=== PATIENT | female | born 1985 | race Hispanic/Latino ===

== ENCOUNTER 2017-03-23 18:35 | Emergency (ER) | payer SELFPAY | END 2017-03-23 19:53 | disposition home or self-care (01) | LOC: ERS 18:35 | DX: O99.512 Diseases of the respiratory system complicating pregnancy, second trimester (principal); J11.1 Influenza due to unidentified influenza virus with other respiratory manifestations; Z3A.22 22 weeks gestation of pregnancy | CPT/HCPCS: 99283 ==

== ENCOUNTER 2017-07-07 08:11 | Inpatient (IN) | payer MEDICAID, SELFPAY ==
[2017-07-07] MEDS: Lactated Ringer's 1,000 ML IV SCH ×3 (08:34→21:27)
[2017-07-07] MEDS ORDERED: NS / Oxytocin 40 units/1000ml 1,000 ML ONE (08:39)
[2017-07-07] MEDS ORDERED: Lidocaine 1% (PF) 30 ML VIAL ONE (08:46)
[2017-07-07] MEDS ORDERED: Ondansetron HCl/PF 4 MG/2 ML Vial IVP PRN (08:56)
[2017-07-07] MEDS ORDERED: Lidocaine 1% (PF) 30 ML VIAL SC PRN (08:56)
[2017-07-07] MEDS ORDERED: Promethazine HCl 25 MG/ML VIAL IM PRN (08:56)
[2017-07-07] MEDS ORDERED: Ibuprofen 800 MG TAB PO PRN (08:56)
[2017-07-07] MEDS ORDERED: NS / Oxytocin 40 units/1000ml 1,000 ML IV PRN (08:56)
--- NOTE | 2017-07-07 09:05 | PDOC.LDHP ---
Labor and Delivery H&P HPI: Patient of the Clinic. Admitted with imminent delivery pending (second stage admit) Dr Lori Acosta and I present at [facility] for admit and delivery HPI: 31 yo HF at term, denies any complications, admitted stat for delivery. Patient progressed to within 15 minutes. See HANDWRITTEN NOTES and Delivery record. Current gestational age (weeks): 39 (0 days) Dating criteria: last menstrual period Grav: 3 Para: 2 Current complications: none Abnormal US findings: No Current medications: pre-srinivas vitamins Previous surgical history: none Allergies/Adverse Reactions: Allergies Allergy/AdvReac Type Severity Reaction Status Date / Time No Known Allergies Allergy Verified 11/04/12 14:35 Social history: none - Physical Exam Vital signs reviewed and normal: yes General: NAD Heart: RRR Lungs: CTAB Abdomen: gravid - Vaginal Exam cm dilated: 10 (H&P done as patient was pushing) Effacement: 100% Station: 2+ - Assessment L&D Assessment: term patient in labor - Plan Plan: admit to L&D, observation in L&D, other (No time for GBS coverage4...GBS unknown. No Risk Factors for GBS identified. Delivery...see delivery record. Has handwritten notes in chart as well)
--- NOTE | 2017-07-07 09:09 | PDOC.OPDEL ---
OB Operative/Delivery Note Delivery Dr/Surgeon: Lori Acosta. Staff: Cardenas Assist: Cardenas (present and participated. Repair of first degree by Cardenas) Pre-Delivery Diagnosis: active labor Procedure/Post Delivery Dx: spontaneous vaginal delivery Weeks gestation: 39 Anesthesia: local - Findings A - 1 min: 9 - 5 min: 9 - Additional Findings/Plan Placenta delivered: spontaneous Repaired Obstetrical Laceration: 1st degree (Repaired with 5ml local without epi. Lac was midline, 2-0 vicryl used for repair.) Estimated blood loss: 200 Compilations/Other Findings: NC X 1 at delivery, baby easily delivered through. Delayed cord clamping for 30- 40 seconds allowed/ Skin to skin done. Delivery was at 0837, placenta at 0843. Intact placenta..pham mechanism, 3 VC Post delivery plan: routine recovery
[2017-07-07 09:10] VITALS: BMI 24.1
[2017-07-07 09:16] LABS: Hemoglobin 13.2 g/dL (12.0-16.0); Mean Corpuscular HGB CONC 34.5 g/dL (32.0-36.0); Mean Corpuscular Hemoglobin 32.2 pg (27.0-31.0); Mean Corpuscular Volume 93.3 fl (81.0-99.0); Mean Platelet Volume 7.8 fL (7.4-10.4); Platelet Count 252 thou/uL (130-400); RBC Distribution Width 13.2 % (11.5-14.5); Red Blood Cell (RBC) Count 4.12 mill/uL (4.20-5.40); White Blood Cell (WBC) Count 13.6 thou/uL (4.8-10.8)
[2017-07-07 09:46] LABS: HIV (1/2) Antibody/Antigen Non-Reactive (NonReactive); HIV 1/2 INDEX 0.09 S/CO (<1.00); Hep B Surf Ag Non-Reactive S/CO (NonReactive); Syphilis Antibody Nonreactive (Nonreactive); Syphilis Antibody Index 0.04 S/CO (<1.00 Non-Reactive)
[2017-07-07] MEDS ORDERED: NS / Oxytocin 40 units/1000ml 1,000 ML IV SCH (11:45)
[2017-07-07] MEDS ORDERED: Benzocaine/Menthol 20-0.5% 60 ML CAN TOP PRN (11:45)
[2017-07-07] MEDS ORDERED: Preparation H Ointment 28 GM TUBE PR PRN (11:45)
[2017-07-07] MEDS ORDERED: Adacel (T-DAP) 0.5 ML VIAL IM ONE (11:45)
[2017-07-07] MEDS ORDERED: Lanolin Ointment 7 GM TUBE TOP PRN (11:45)
[2017-07-07] MEDS ORDERED: Milk Of Magnesia 30 ML UDCUP PO PRN (11:45)
[2017-07-07] MEDS ORDERED: Bisacodyl 10 MG SUPP PR PRN (11:45)
[2017-07-07] MEDS: Ibuprofen 800 MG TAB PO SCH ×2 (14:57→21:28)
[2017-07-07] MEDS: Ferrous Sulfate 325 MG TAB PO SCH (18:14)
[2017-07-07] MEDS: Docusate Calcium (SURFAK) 240 MG CAP PO SCH (21:28)
[2017-07-08] MEDS: Ibuprofen 800 MG TAB PO SCH ×3 (05:46→21:35)
--- NOTE | 2017-07-08 05:50 | PDOC.PP ---
Post Progress Note Post Day #: 1 Subjective: Doing well PO intake tolerated: yes Flatus: yes Ambulation: yes Vital Signs (12 hours) Temp Pulse Resp BP Pulse Ox 07/08/17 04:37 98.2 F 66 18 07/08/17 04:07 98.2 F 66 18 121/77 98 07/08/17 00:26 97.9 F 55 L 16 114/68 97 07/07/17 19:43 97.9 F 62 18 07/07/17 19:17 97.9 F 62 18 110/63 98 07/07/17 18:16 98.2 F 64 16 112/70 98 Weight Weight 154 lb - Physical Examination General: NAD Cardiovascular: no m/r/g Respiratory: clear to auscultation bilaterally Abdominal: + bowel sounds, lochia, appropriately TTP Extremities: negative homans (B) Perineum: No active VB Neurological: no gross focal deficits Result Diagrams: 07/07/17 08:35 Additional Labs: Post Labs Blood Type O POSITIVE 07/07/17 08:35 Hep Bs Antigen Non-Reactive S/CO (NonReactive) 07/07/17 08:35 (1) Vaginal delivery Code(s): O80 - ENCOUNTER FOR FULL-TERM UNCOMPLICATED DELIVERY Status: Acute - Assessment/Plan Patient is doing well. She was GBS positive, untreated intrapartum due to rapid delivery after admission. D/W NBN, baby will stay for obs...so we will keep mother until tomorrow when baby ready for discharge as well. Check Hct in AM . EBL at delivery was <300ml.
--- NOTE | 2017-07-08 06:56 | PDOC.PP ---
Post Progress Note Post Day #: 1 Subjective: Patient is doing well. She is up walking around. She has been voiding normally. Reports lochia less than a period. Pain is well controlled. PO intake tolerated: yes Flatus: yes Ambulation: yes Vital Signs (12 hours) Temp Pulse Resp BP Pulse Ox 07/08/17 04:37 98.2 F 66 18 07/08/17 04:07 98.2 F 66 18 121/77 98 07/08/17 00:26 97.9 F 55 L 16 114/68 97 07/07/17 19:43 97.9 F 62 18 07/07/17 19:17 97.9 F 62 18 110/63 98 Weight Weight 69.853 kg - Physical Examination General: NAD Cardiovascular: no m/r/g, RRR Respiratory: clear to auscultation bilaterally, non-labored breathing Abdominal: + bowel sounds, lochia, no distention, appropriately TTP Fundus firm & at: umbilicus Extremities: negative homans (B) Psychiatric: A&Ox3, normal affect Result Diagrams: 07/07/17 08:35 Additional Labs: Post Labs Blood Type O POSITIVE 07/07/17 08:35 Hep Bs Antigen Non-Reactive S/CO (NonReactive) 07/07/17 08:35 (1) Vaginal delivery Code(s): O80 - ENCOUNTER FOR FULL-TERM UNCOMPLICATED DELIVERY Status: Acute - Assessment/Plan -->3 delivered via precipitous , post- day #1. She is doing well with ambulation and voiding. Lochia wnl. without difficulty. Was GBS+ with precipitous labor so did not receive Abx. Will monitor for 1 more night before discharge home.
[2017-07-08] MEDS: Prenatal Vitamin 1 TAB PO SCH (07:58)
[2017-07-08] MEDS: Docusate Calcium (SURFAK) 240 MG CAP PO SCH ×2 (07:58→21:35)
[2017-07-08] MEDS: Ferrous Sulfate 325 MG TAB PO SCH ×2 (07:59→16:10)
[2017-07-08] MEDS: Lactated Ringer's 1,000 ML IV SCH ×2 (09:21→16:10)
[2017-07-09] MEDS: Lactated Ringer's 1,000 ML IV SCH (00:33)
[2017-07-09] MEDS: Ibuprofen 800 MG TAB PO SCH (05:25)
[2017-07-09 05:33] LABS: Hemoglobin 10.3 g/dL (12.0-16.0)
--- NOTE | 2017-07-09 06:38 | PDOC.PP ---
Post Progress Note Post Day #: 2 Subjective: Patient is doing well this morning. No complaints. She is well, ambulating well, voiding normally, reports normal lochia, and pain is controlled with ibuprofen. No acute events overnight. PO intake tolerated: yes Flatus: yes Ambulation: yes Vital Signs (12 hours) Temp Pulse Resp BP Pulse Ox 07/08/17 19:44 97.9 F 63 16 124/70 97 Weight Weight 69.853 kg - Physical Examination General: NAD Cardiovascular: no m/r/g, RRR Respiratory: clear to auscultation bilaterally Abdominal: + bowel sounds, lochia, appropriately TTP Fundus firm & at: umbilicus Extremities: negative homans (B) Neurological: no gross focal deficits Psychiatric: A&Ox3, normal affect Result Diagrams: 07/09/17 05:10 Additional Labs: Post Labs Blood Type O POSITIVE 07/07/17 08:35 Hep Bs Antigen Non-Reactive S/CO (NonReactive) 07/07/17 08:35 (1) Vaginal delivery Code(s): O80 - ENCOUNTER FOR FULL-TERM UNCOMPLICATED DELIVERY Status: Acute - Assessment/Plan -->3 delivered via precipitous , post- day #2. She is doing well with ambulation and voiding. Lochia wnl. without difficulty. Was GBS+ with precipitous labor so did not receive Abx. Plan to d/c home today.
[2017-07-09 07:53] VITALS: BP 128/74; TEMP 98.7
[2017-07-09] MEDS: Docusate Calcium (SURFAK) 240 MG CAP PO SCH (09:42)
[2017-07-09] MEDS: Prenatal Vitamin 1 TAB PO SCH (09:42)
[2017-07-09] MEDS: Ferrous Sulfate 325 MG TAB PO SCH (09:43)
== END 2017-07-09 10:36 | disposition home or self-care (01) | DRG 775 ==
LOC: L&D/OP 08:11 → L&D 08:52 → 3SE 18:11
PROVIDERS: ADMIT Obstetrics & Gynecology; ATTEND Obstetrics & Gynecology
PROC: 10E0XZZ Delivery of Products of Conception, External Approach (ICD-10-PCS; principal; 2017-07-07)
PROC: 0HQ9XZZ Repair Perineum Skin, External Approach (ICD-10-PCS; 2017-07-07)
DX: O70.0 First degree perineal laceration during delivery (principal); O62.3 Precipitate labor; O99.824 Streptococcus B carrier state complicating childbirth; Z3A.39 39 weeks gestation of pregnancy; Z37.0 Single live birth
CPT/HCPCS: 36415; 85014; 85018; 85027; 86780; 86850; 86900; 86901; 87340; 87389; 99285; A4216; J2001

== ENCOUNTER 2020-06-06 12:05 | Inpatient (IN) | payer MEDICAID, SELFPAY ==
[2020-06-06 12:41] LABS: #Monocytes 0.3 thou/uL (0.11-0.59); #Neutrophils 11.3 thou/uL (1.40-6.50); %Basophils 0.3 % (0.0-1.0); %Eosinophils 0.2 % (0.0-10.0); %Lymphocytes 7.9 % (21.0-51.0); %Monocytes 2.2 % (0.0-10.0); %Neutrophils 89.4 % (42.0-75.0); Hemoglobin 14.5 g/dL (12.0-16.0); Mean Corpuscular HGB CONC 32.5 g/dL (32.0-36.0); Mean Corpuscular Hemoglobin 29.3 pg (27.0-31.0); Mean Corpuscular Volume 90.3 fL (78.0-98.0); Mean Platelet Volume 6.7 fL (7.4-10.4); Platelet Count 532 thou/uL (130-400); RBC Distribution Width 12.6 % (11.5-14.5); Red Blood Cell (RBC) Count 4.96 mill/uL (4.20-5.40); White Blood Cell (WBC) Count 12.6 thou/uL (4.8-10.8)
[2020-06-06] MEDS ORDERED: cefTRIAXone\\ROCEPHIN 1 GM VIAL ONE (12:41)
[2020-06-06 12:42] LABS: BHCG - Serum Negative (NEGATIVE); Pregs Control Background? CLEAR/WHITE (CLR/WHITE); Pregs Control Bar Appear? YES (CONTROL BAR)
[2020-06-06] MEDS ORDERED: Dexamethasone 4 mg/ml Vial ONE (12:42)
[2020-06-06] MEDS ORDERED: Aspirin Chewable 81 MG TAB ONE (12:42)
[2020-06-06] MEDS ORDERED: Enoxaparin Sodium 80 MG/0.8 ML SYRINGE ONE (12:44)
[2020-06-06] MEDS ORDERED: Azithromycin 500 MG VIAL ONE (12:44)
[2020-06-06 13:04] LABS: ALT (SGPT) 25 U/L (8-55); AST (SGOT) 17 U/L (5-34); Albumin 3.8 g/dL (3.5-5.0); Alkaline Phosphatase 126 U/L (40-110); Anion Gap 13 mmol/L (10-20); BUN (Urea Nitrogen) 16 mg/dL (7.0-18.7); Bilirubin, Total 0.5 mg/dL (0.2-1.2); CK (CPK) 26 U/L (29-168); Calc. Creatinine Clearance 0 mL/min (70-130); Calcium 9.2 mg/dL (7.8-10.44); Carbon Dioxide 21 mmol/L (22-29); Chloride 106 mmol/L (98-107); Globulin 4.3 g/dL (2.4-3.5); Glucose 141 mg/dL (70-105); Magnesium 2.3 mg/dL (1.6-2.6); Potassium 3.8 mmol/L (3.5-5.1); Protein, Total 8.1 g/dL (6.0-8.3); Sodium 136 mmol/L (136-145)
[2020-06-06] MEDS ORDERED: Iopamidol-370 76% 500 ML 1 ML ONE (13:04)
[2020-06-06] MEDS ORDERED: Acetaminophen 325 MG TAB PO PRN (14:38)
[2020-06-06] MEDS ORDERED: Acetaminophen 650 MG Suppository PR PRN (14:38)
[2020-06-06] MEDS ORDERED: Ondansetron PF 4 MG/2 ML Vial IVP PRN (14:38)
[2020-06-06] MEDS ORDERED: Ondansetron ODT 4 MG TAB PO PRN (14:38)
[2020-06-06 15:06] LABS: SARS-CoV-2 NAA Rapid Test DETECTED (NotDetected)
[2020-06-06 21:19] VITALS: BMI 24.1
[2020-06-06] MEDS: Enoxaparin Sodium 80 MG/0.8 ML SYRINGE SC SCH (21:36)
[2020-06-07 06:24] LABS: #Basophils 0.1 thou/uL (0.0-0.2); #Lymphocytes 1.8 thou/uL (1.20-3.40); #Monocytes 1.2 thou/uL (0.11-0.59); #Neutrophils 9.9 thou/uL (1.40-6.50); %Basophils 0.5 % (0.0-1.0); %Eosinophils 0.3 % (0.0-10.0); %Lymphocytes 14.1 % (21.0-51.0); %Neutrophils 76.2 % (42.0-75.0); Hemoglobin 13.2 g/dL (12.0-16.0); Mean Corpuscular Volume 90.6 fL (78.0-98.0); Mean Platelet Volume 6.9 fL (7.4-10.4); Platelet Count 556 thou/uL (130-400); RBC Distribution Width 12.6 % (11.5-14.5); Red Blood Cell (RBC) Count 4.56 mill/uL (4.20-5.40)
[2020-06-07 06:45] LABS: Anion Gap 16 mmol/L (10-20); BUN (Urea Nitrogen) 15 mg/dL (7.0-18.7); Calc. Creatinine Clearance 134 mL/min (70-130); Carbon Dioxide 17 mmol/L (22-29); Chloride 109 mmol/L (98-107); Glucose 103 mg/dL (70-105); Sodium 138 mmol/L (136-145)
[2020-06-07] MEDS: Dexamethasone 4 MG TAB PO SCH (08:04)
[2020-06-07] MEDS: Enoxaparin Sodium 80 MG/0.8 ML SYRINGE SC SCH ×2 (08:05→20:05)
[2020-06-07] MEDS: Ascorbic Acid 500 mg Chewable Tablet PO SCH (08:05)
[2020-06-07] MEDS: Zinc Sulfate 220 MG CAP PO SCH (08:05)
[2020-06-08 06:05] LABS: #Eosinphils 0.1 thou/uL (0.0-0.7); #Lymphocytes 2.8 thou/uL (1.20-3.40); #Monocytes 1.4 thou/uL (0.11-0.59); #Neutrophils 10.4 thou/uL (1.40-6.50); %Basophils 0.2 % (0.0-1.0); %Eosinophils 0.4 % (0.0-10.0); %Lymphocytes 18.9 % (21.0-51.0); %Monocytes 9.7 % (0.0-10.0); %Neutrophils 70.8 % (42.0-75.0); Hemoglobin 13.9 g/dL (12.0-16.0); Mean Corpuscular HGB CONC 32.4 g/dL (32.0-36.0); Mean Corpuscular Hemoglobin 29.8 pg (27.0-31.0); Mean Corpuscular Volume 91.9 fL (78.0-98.0); Mean Platelet Volume 6.9 fL (7.4-10.4); Platelet Count 541 thou/uL (130-400); RBC Distribution Width 12.8 % (11.5-14.5); Red Blood Cell (RBC) Count 4.67 mill/uL (4.20-5.40); White Blood Cell (WBC) Count 14.7 thou/uL (4.8-10.8)
[2020-06-08 06:23] LABS: Anion Gap 15 mmol/L (10-20); BUN (Urea Nitrogen) 14 mg/dL (7.0-18.7); Calc. Creatinine Clearance 128 mL/min (70-130); Calcium 9.1 mg/dL (7.8-10.44); Carbon Dioxide 18 mmol/L (22-29); Chloride 108 mmol/L (98-107); Glucose 83 mg/dL (70-105); Sodium 137 mmol/L (136-145)
[2020-06-08] MEDS: Dexamethasone 4 MG TAB PO SCH (08:11)
[2020-06-08] MEDS: Ascorbic Acid 500 mg Chewable Tablet PO SCH (08:11)
[2020-06-08] MEDS: Enoxaparin Sodium 80 MG/0.8 ML SYRINGE SC SCH ×2 (08:11→21:07)
[2020-06-08] MEDS: Zinc Sulfate 220 MG CAP PO SCH (08:11)
[2020-06-08] MEDS ORDERED: methylPREDNISolone Sod Succ/PF 125 MG/2 ML VIAL IVP SCH (12:45)
[2020-06-08] MEDS ORDERED: Ivermectin 3 MG TAB PO SCH (13:00)
[2020-06-08] MEDS: Thiamine 100 MG TAB PO SCH (13:23)
[2020-06-08] MEDS: SODIUM CHLORIDE 0.9% IVPB SCH (13:28)
[2020-06-08] MEDS: METHYLPREDNISOLONE SOD SUCC IVPB SCH (13:28)
[2020-06-08] MEDS: Piperacillin/Tazobactam 3.375 GM in Sodium Chloride 0.9% 100 ML IVPB SCH ×3 (13:28→23:43)
[2020-06-08] MEDS: Cholecalciferol 1,000 UNITS (25 MCG) TAB PO SCH (21:07)
[2020-06-08] MEDS: Melatonin 3 MG TAB PO SCH (21:07)
[2020-06-09] MEDS: Piperacillin/Tazobactam 3.375 GM in Sodium Chloride 0.9% 100 ML IVPB SCH ×4 (05:32→23:44)
[2020-06-09] MEDS: Enoxaparin Sodium 80 MG/0.8 ML SYRINGE SC SCH ×2 (07:25→20:25)
[2020-06-09] MEDS: Ascorbic Acid 500 mg Chewable Tablet PO SCH (07:26)
[2020-06-09] MEDS: Ivermectin 3 MG TAB PO SCH (07:26)
[2020-06-09] MEDS: Zinc Sulfate 220 MG CAP PO SCH (07:26)
[2020-06-09 07:54] LABS: #Lymphocytes 1.3 thou/uL (1.20-3.40); #Monocytes 0.5 thou/uL (0.11-0.59); %Eosinophils 0.2 % (0.0-10.0); %Lymphocytes 7.9 % (21.0-51.0); %Monocytes 3.4 % (0.0-10.0); %Neutrophils 88.6 % (42.0-75.0); Mean Corpuscular HGB CONC 33.3 g/dL (32.0-36.0); Mean Corpuscular Hemoglobin 30.2 pg (27.0-31.0); Mean Corpuscular Volume 90.7 fL (78.0-98.0); Mean Platelet Volume 6.9 fL (7.4-10.4); Platelet Count 536 thou/uL (130-400); RBC Distribution Width 12.6 % (11.5-14.5); Red Blood Cell (RBC) Count 4.65 mill/uL (4.20-5.40); White Blood Cell (WBC) Count 15.8 thou/uL (4.8-10.8)
[2020-06-09 08:15] LABS: Anion Gap 15 mmol/L (10-20); BUN (Urea Nitrogen) 15 mg/dL (7.0-18.7); Calc. Creatinine Clearance 118 mL/min (70-130); Calcium 9.5 mg/dL (7.8-10.44); Carbon Dioxide 16 mmol/L (22-29); Chloride 107 mmol/L (98-107); Glucose 129 mg/dL (70-105); Potassium 4.4 mmol/L (3.5-5.1); Sodium 134 mmol/L (136-145)
[2020-06-09] MEDS: Sodium Chloride 0.9% 1,000 ML IV SCH (10:13)
[2020-06-09] MEDS: Thiamine 100 MG TAB PO SCH (12:45)
[2020-06-09] MEDS: Guaifenesin DM 100-10/5 ML UDCUP PO PRN (12:45)
[2020-06-09] MEDS: SODIUM CHLORIDE 0.9% IVPB SCH (13:08)
[2020-06-09] MEDS: METHYLPREDNISOLONE SOD SUCC IVPB SCH (13:08)
[2020-06-09] MEDS ORDERED: Fentanyl 100 MCG/2 ML VIAL ONE (14:26)
[2020-06-09] MEDS: Cholecalciferol 1,000 UNITS (25 MCG) TAB PO SCH (20:24)
[2020-06-09] MEDS: Melatonin 3 MG TAB PO SCH (20:25)
[2020-06-09] MEDS: Albuterol 200 PUFF (6.7GM INHALER) INH PRN (20:25)
[2020-06-10] MEDS: Albuterol 200 PUFF (6.7GM INHALER) INH PRN (03:40)
[2020-06-10 05:08] LABS: #Eosinphils 0.1 thou/uL (0.0-0.7); #Lymphocytes 1.4 thou/uL (1.20-3.40); #Neutrophils 16.4 thou/uL (1.40-6.50); %Basophils 0.1 % (0.0-1.0); %Eosinophils 0.3 % (0.0-10.0); %Lymphocytes 7.4 % (21.0-51.0); %Monocytes 5.3 % (0.0-10.0); %Neutrophils 86.9 % (42.0-75.0); Hemoglobin 12.8 g/dL (12.0-16.0); Mean Corpuscular HGB CONC 33.4 g/dL (32.0-36.0); Mean Corpuscular Hemoglobin 30.3 pg (27.0-31.0); Mean Corpuscular Volume 90.8 fL (78.0-98.0); Mean Platelet Volume 7.1 fL (7.4-10.4); Platelet Count 522 thou/uL (130-400); RBC Distribution Width 12.7 % (11.5-14.5); Red Blood Cell (RBC) Count 4.22 mill/uL (4.20-5.40); White Blood Cell (WBC) Count 18.8 thou/uL (4.8-10.8)
[2020-06-10] MEDS: Sodium Chloride 0.9% 1,000 ML IV SCH (05:40)
[2020-06-10] MEDS: Piperacillin/Tazobactam 3.375 GM in Sodium Chloride 0.9% 100 ML IVPB SCH ×3 (05:41→16:51)
[2020-06-10 05:43] LABS: Anion Gap 14 mmol/L (10-20); BUN (Urea Nitrogen) 13 mg/dL (7.0-18.7); Calc. Creatinine Clearance 115 mL/min (70-130); Calcium 8.8 mg/dL (7.8-10.44); Carbon Dioxide 18 mmol/L (22-29); Chloride 106 mmol/L (98-107); Glucose 127 mg/dL (70-105); Potassium 3.9 mmol/L (3.5-5.1); Sodium 134 mmol/L (136-145)
[2020-06-10 05:46] LABS: ALT (SGPT) 25 U/L (8-55); AST (SGOT) 14 U/L (5-34); Albumin 3.3 g/dL (3.5-5.0); Alkaline Phosphatase 93 U/L (40-110); Anion Gap 14 mmol/L (10-20); BUN (Urea Nitrogen) 13 mg/dL (7.0-18.7); Bilirubin, Total 0.5 mg/dL (0.2-1.2); CRP (Inflammatory) 0.55 mg/dL (= or < 0.5); Calc. Creatinine Clearance 116 mL/min (70-130); Calcium 9.1 mg/dL (7.8-10.44); Carbon Dioxide 19 mmol/L (22-29); Chloride 107 mmol/L (98-107); Globulin 3.2 g/dL (2.4-3.5); Glucose 129 mg/dL (70-105); Protein, Total 6.5 g/dL (6.0-8.3); Sodium 136 mmol/L (136-145)
[2020-06-10] MEDS: Enoxaparin Sodium 80 MG/0.8 ML SYRINGE SC SCH ×2 (07:30→20:14)
[2020-06-10] MEDS: Ascorbic Acid 500 mg Chewable Tablet PO SCH (07:31)
[2020-06-10] MEDS: Zinc Sulfate 220 MG CAP PO SCH (07:31)
[2020-06-10] MEDS: Ivermectin 3 MG TAB PO SCH (07:32)
[2020-06-10] MEDS: Thiamine 100 MG TAB PO SCH (12:50)
[2020-06-10] MEDS: METHYLPREDNISOLONE SOD SUCC IVPB SCH (16:51)
[2020-06-10] MEDS: SODIUM CHLORIDE 0.9% IVPB SCH (16:51)
[2020-06-10] MEDS: Melatonin 3 MG TAB PO SCH (20:13)
[2020-06-10] MEDS: Cholecalciferol 1,000 UNITS (25 MCG) TAB PO SCH (20:14)
[2020-06-11] MEDS: Piperacillin/Tazobactam 3.375 GM in Sodium Chloride 0.9% 100 ML IVPB SCH ×5 (00:12→23:00)
[2020-06-11] MEDS: Sodium Chloride 0.9% 1,000 ML IV SCH (01:33)
[2020-06-11 05:59] LABS: Anion Gap 12 mmol/L (10-20); BUN (Urea Nitrogen) 13 mg/dL (7.0-18.7); Calc. Creatinine Clearance 113 mL/min (70-130); Calcium 9.1 mg/dL (7.8-10.44); Carbon Dioxide 22 mmol/L (22-29); Chloride 105 mmol/L (98-107); Glucose 118 mg/dL (70-105); Potassium 4.3 mmol/L (3.5-5.1); Sodium 135 mmol/L (136-145)
[2020-06-11 06:32] LABS: Band 8 % (5-11); Hemoglobin 12.7 g/dL (12.0-16.0); Lymphocytes 9 % (21-51); MDiff Complete? YES; Mean Corpuscular HGB CONC 33.1 g/dL (32.0-36.0); Mean Corpuscular Hemoglobin 30.1 pg (27.0-31.0); Mean Corpuscular Volume 90.8 fL (78.0-98.0); Mean Platelet Volume 7.4 fL (7.4-10.4); Monocytes 2 % (0-10); Neutrophil 81 % (42-75); Platelet Count 506 thou/uL (130-400); RBC Distribution Width 12.6 % (11.5-14.5); Red Blood Cell (RBC) Count 4.21 mill/uL (4.20-5.40); White Blood Cell (WBC) Count 12.5 thou/uL (4.8-10.8)
[2020-06-11] MEDS: METHYLPREDNISOLONE SOD SUCC IVPB SCH (07:29)
[2020-06-11] MEDS: SODIUM CHLORIDE 0.9% IVPB SCH (07:29)
[2020-06-11] MEDS: Zinc Sulfate 220 MG CAP PO SCH (07:30)
[2020-06-11] MEDS: Enoxaparin Sodium 80 MG/0.8 ML SYRINGE SC SCH ×2 (07:30→20:23)
[2020-06-11] MEDS: Ascorbic Acid 500 mg Chewable Tablet PO SCH (07:30)
[2020-06-11] MEDS: Guaifenesin DM 100-10/5 ML UDCUP PO PRN (07:30)
[2020-06-11] MEDS: Ivermectin 3 MG TAB PO SCH (07:32)
[2020-06-11] MEDS: Thiamine 100 MG TAB PO SCH (13:38)
[2020-06-11] MEDS: Melatonin 3 MG TAB PO SCH (20:24)
[2020-06-11] MEDS: Cholecalciferol 1,000 UNITS (25 MCG) TAB PO SCH (20:24)
[2020-06-11] MEDS: guaiFENesin ER 600 MG TAB PO SCH (20:24)
[2020-06-12] MEDS: Piperacillin/Tazobactam 3.375 GM in Sodium Chloride 0.9% 100 ML IVPB SCH ×4 (05:13→23:08)
[2020-06-12] MEDS: Ascorbic Acid 500 mg Chewable Tablet PO SCH (07:55)
[2020-06-12] MEDS: Enoxaparin Sodium 80 MG/0.8 ML SYRINGE SC SCH ×2 (07:55→20:45)
[2020-06-12] MEDS: guaiFENesin ER 600 MG TAB PO SCH ×2 (07:56→20:45)
[2020-06-12] MEDS: Multivit, Therapeutic 1 TAB PO SCH (07:56)
[2020-06-12] MEDS: Zinc Sulfate 220 MG CAP PO SCH (07:56)
[2020-06-12] MEDS: Ivermectin 3 MG TAB PO SCH (07:56)
[2020-06-12] MEDS: METHYLPREDNISOLONE SOD SUCC IVPB SCH (14:21)
[2020-06-12] MEDS: SODIUM CHLORIDE 0.9% IVPB SCH (14:21)
[2020-06-12] MEDS: Thiamine 100 MG TAB PO SCH (14:22)
[2020-06-12] MEDS: Famotidine 20 MG TAB PO SCH (20:44)
[2020-06-12] MEDS: predniSONE 20 MG TAB PO SCH (20:44)
[2020-06-12] MEDS: Melatonin 3 MG TAB PO SCH (20:44)
[2020-06-12] MEDS: Cholecalciferol 1,000 UNITS (25 MCG) TAB PO SCH (20:45)
[2020-06-13 01:10] LABS: Anion Gap 14 mmol/L (10-20); BUN (Urea Nitrogen) 19 mg/dL (7.0-18.7); Calc. Creatinine Clearance 103 mL/min (70-130); Calcium 9.2 mg/dL (7.8-10.44); Carbon Dioxide 21 mmol/L (22-29); Chloride 104 mmol/L (98-107); Glucose 159 mg/dL (70-105); Magnesium 2.5 mg/dL (1.6-2.6); Potassium 4.4 mmol/L (3.5-5.1); Sodium 135 mmol/L (136-145)
[2020-06-13] MEDS: Piperacillin/Tazobactam 3.375 GM in Sodium Chloride 0.9% 100 ML IVPB SCH ×4 (05:22→23:21)
[2020-06-13] MEDS: Famotidine 20 MG TAB PO SCH ×2 (07:34→19:19)
[2020-06-13] MEDS: Enoxaparin Sodium 80 MG/0.8 ML SYRINGE SC SCH ×2 (07:35→19:18)
[2020-06-13] MEDS: Zinc Sulfate 220 MG CAP PO SCH (07:35)
[2020-06-13] MEDS: guaiFENesin ER 600 MG TAB PO SCH ×2 (07:35→19:20)
[2020-06-13] MEDS: Ascorbic Acid 500 mg Chewable Tablet PO SCH (07:35)
[2020-06-13] MEDS: Multivit, Therapeutic 1 TAB PO SCH (07:35)
[2020-06-13] MEDS: predniSONE 20 MG TAB PO SCH ×2 (07:35→19:19)
[2020-06-13] MEDS: Ivermectin 3 MG TAB PO SCH (07:36)
[2020-06-13] MEDS: Thiamine 100 MG TAB PO SCH (12:42)
[2020-06-13] MEDS: Cholecalciferol 1,000 UNITS (25 MCG) TAB PO SCH (19:19)
[2020-06-13] MEDS: Melatonin 3 MG TAB PO SCH (20:54)
[2020-06-14] MEDS: Piperacillin/Tazobactam 3.375 GM in Sodium Chloride 0.9% 100 ML IVPB SCH ×2 (05:09→14:11)
[2020-06-14] MEDS: Enoxaparin Sodium 80 MG/0.8 ML SYRINGE SC SCH (07:14)
[2020-06-14] MEDS: Ascorbic Acid 500 mg Chewable Tablet PO SCH (07:15)
[2020-06-14] MEDS: predniSONE 20 MG TAB PO SCH ×2 (07:15→20:36)
[2020-06-14] MEDS: Famotidine 20 MG TAB PO SCH ×2 (07:15→20:35)
[2020-06-14] MEDS: Multivit, Therapeutic 1 TAB PO SCH (07:15)
[2020-06-14] MEDS: Zinc Sulfate 220 MG CAP PO SCH (07:16)
[2020-06-14] MEDS: Ivermectin 3 MG TAB PO SCH (07:16)
[2020-06-14] MEDS: guaiFENesin ER 600 MG TAB PO SCH ×2 (07:16→20:36)
[2020-06-14] MEDS ORDERED: Piperacillin/Tazobactam 3.375 GM VIAL ONE (11:13)
[2020-06-14] MEDS: Thiamine 100 MG TAB PO SCH (14:13)
[2020-06-14] MEDS: Cholecalciferol 1,000 UNITS (25 MCG) TAB PO SCH (20:35)
[2020-06-14] MEDS: Apixaban 5 MG TAB PO SCH (20:35)
[2020-06-14] MEDS: Melatonin 3 MG TAB PO SCH (20:36)
[2020-06-15 05:24] LABS: #Eosinphils 0.1 thou/uL (0.0-0.7); #Lymphocytes 1.7 thou/uL (1.20-3.40); #Monocytes 0.5 thou/uL (0.11-0.59); #Neutrophils 14.5 thou/uL (1.40-6.50); %Basophils 0.1 % (0.0-1.0); %Eosinophils 0.6 % (0.0-10.0); %Neutrophils 86.3 % (42.0-75.0); Hemoglobin 13.6 g/dL (12.0-16.0); Mean Corpuscular HGB CONC 32.9 g/dL (32.0-36.0); Mean Corpuscular Hemoglobin 29.8 pg (27.0-31.0); Mean Corpuscular Volume 90.4 fL (78.0-98.0); Mean Platelet Volume 7.1 fL (7.4-10.4); Platelet Count 434 thou/uL (130-400); RBC Distribution Width 13.2 % (11.5-14.5); Red Blood Cell (RBC) Count 4.56 mill/uL (4.20-5.40); White Blood Cell (WBC) Count 16.8 thou/uL (4.8-10.8)
[2020-06-15 05:43] LABS: Anion Gap 15 mmol/L (10-20); BUN (Urea Nitrogen) 16 mg/dL (7.0-18.7); Calc. Creatinine Clearance 108 mL/min (70-130); Calcium 9.2 mg/dL (7.8-10.44); Carbon Dioxide 24 mmol/L (22-29); Chloride 103 mmol/L (98-107); Glucose 119 mg/dL (70-105); Potassium 4.6 mmol/L (3.5-5.1); Sodium 137 mmol/L (136-145)
[2020-06-15] MEDS: Zinc Sulfate 220 MG CAP PO SCH (09:04)
[2020-06-15] MEDS: Multivit, Therapeutic 1 TAB PO SCH (09:04)
[2020-06-15] MEDS: Famotidine 20 MG TAB PO SCH ×2 (09:04→20:08)
[2020-06-15] MEDS: predniSONE 20 MG TAB PO SCH ×2 (09:04→20:09)
[2020-06-15] MEDS: guaiFENesin ER 600 MG TAB PO SCH ×2 (09:05→20:09)
[2020-06-15] MEDS: Apixaban 5 MG TAB PO SCH ×2 (09:05→20:07)
[2020-06-15] MEDS: Ascorbic Acid 500 mg Chewable Tablet PO SCH (09:05)
[2020-06-15] MEDS: Ivermectin 3 MG TAB PO SCH (09:07)
[2020-06-15] MEDS: Thiamine 100 MG TAB PO SCH ×2 (16:11→20:10)
[2020-06-15] MEDS: Cholecalciferol 1,000 UNITS (25 MCG) TAB PO SCH (20:08)
[2020-06-15] MEDS: Melatonin 3 MG TAB PO SCH (20:09)
[2020-06-16] MEDS: Ascorbic Acid 500 mg Chewable Tablet PO SCH (07:59)
[2020-06-16] MEDS: predniSONE 20 MG TAB PO SCH ×2 (08:00→19:58)
[2020-06-16] MEDS: Famotidine 20 MG TAB PO SCH ×2 (08:00→19:57)
[2020-06-16] MEDS: Apixaban 5 MG TAB PO SCH ×2 (08:00→19:57)
[2020-06-16] MEDS: Multivit, Therapeutic 1 TAB PO SCH (08:00)
[2020-06-16] MEDS: guaiFENesin ER 600 MG TAB PO SCH ×2 (08:00→19:57)
[2020-06-16] MEDS: Zinc Sulfate 220 MG CAP PO SCH (08:01)
[2020-06-16] MEDS: Ivermectin 3 MG TAB PO SCH (09:26)
[2020-06-16] MEDS: Melatonin 3 MG TAB PO SCH (19:57)
[2020-06-16] MEDS: Cholecalciferol 1,000 UNITS (25 MCG) TAB PO SCH (19:57)
[2020-06-16] MEDS: Thiamine 100 MG TAB PO SCH (19:57)
[2020-06-17] MEDS: Ivermectin 3 MG TAB PO SCH (08:38)
[2020-06-17] MEDS: Famotidine 20 MG TAB PO SCH (08:39)
[2020-06-17] MEDS: predniSONE 20 MG TAB PO SCH (08:39)
[2020-06-17] MEDS: Zinc Sulfate 220 MG CAP PO SCH (08:39)
[2020-06-17] MEDS: Ascorbic Acid 500 mg Chewable Tablet PO SCH (08:39)
[2020-06-17] MEDS: Multivit, Therapeutic 1 TAB PO SCH (08:39)
[2020-06-17] MEDS: Apixaban 5 MG TAB PO SCH (08:39)
[2020-06-17] MEDS: guaiFENesin ER 600 MG TAB PO SCH (08:40)
[2020-06-17 10:58] LABS: Hemoglobin 13.2 g/dL (12.0-16.0); Mean Corpuscular HGB CONC 32.4 g/dL (32.0-36.0); Mean Corpuscular Hemoglobin 29.2 pg (27.0-31.0); Mean Platelet Volume 7.3 fL (7.4-10.4); Platelet Count 361 thou/uL (130-400); RBC Distribution Width 13.6 % (11.5-14.5); Red Blood Cell (RBC) Count 4.53 mill/uL (4.20-5.40); White Blood Cell (WBC) Count 20.1 thou/uL (4.8-10.8)
[2020-06-17 11:15] LABS: ALT (SGPT) 21 U/L (8-55); AST (SGOT) 11 U/L (5-34); Albumin 3.6 g/dL (3.5-5.0); Alkaline Phosphatase 76 U/L (40-110); Anion Gap 15 mmol/L (10-20); BUN (Urea Nitrogen) 16 mg/dL (7.0-18.7); Bilirubin, Total 0.4 mg/dL (0.2-1.2); Calc. Creatinine Clearance 120 mL/min (70-130); Calcium 8.8 mg/dL (7.8-10.44); Carbon Dioxide 22 mmol/L (22-29); Chloride 104 mmol/L (98-107); Globulin 2.9 g/dL (2.4-3.5); Glucose 103 mg/dL (70-105); Magnesium 2.2 mg/dL (1.6-2.6); Potassium 3.9 mmol/L (3.5-5.1); Protein, Total 6.5 g/dL (6.0-8.3); Sodium 137 mmol/L (136-145)
[2020-06-17 11:56] LABS: Band 1 % (5-11); Lymphocytes 9 % (21-51); MDiff Complete? YES; Metamyelocyte 1 % (0-0); Monocytes 4 % (0-10); Neutrophil 84 % (42-75); Platelet Morphology Comment Appears Adequate; RBC Morphology Normal; Reactive Lymphocytes 1 % (0-10)
[2020-06-17 15:38] VITALS: BP 131/84; TEMP 97.8
== END 2020-06-17 15:50 | disposition home or self-care (01) | DRG 871 ==
LOC: ERS 12:05 → ERHOLD 14:11 → 2SW 21:09
PROVIDERS: ADMIT Internal Medicine; ATTEND Internal Medicine
PROC: 8E0ZXY6 Isolation (ICD-10-PCS; principal; 2020-06-06)
DX: A41.89 Other specified sepsis (principal); U07.1 COVID-19; J12.82 Pneumonia due to coronavirus disease 2019; I26.99 Other pulmonary embolism without acute cor pulmonale; J96.01 Acute respiratory failure with hypoxia; E87.1 Hypo-osmolality and hyponatremia; E87.2 Acidosis; R65.20 Severe sepsis without septic shock; E86.0 Dehydration; T38.0X5A Adverse effect of glucocorticoids and synthetic analogues, initial encounter; D72.829 Elevated white blood cell count, unspecified; D47.3 Essential (hemorrhagic) thrombocythemia; I45.5 Other specified heart block
CPT/HCPCS: 0240U; 36415; 36416; 71045; 71275; 80048; 80053; 82550; 82728; 83735; 83880; 84443; 84484; 84703; 85025; 85379; 86140; 93005; 93970; 96365; 96366; 96368; 96372; 96375; J0456; J0696; J1100; J1650; J1956; J2543; J2930; J3010; J3490; J7050; J7512; J8540; Q9967